=== PATIENT | female | born 1965 | race Caucasian/White ===

== ENCOUNTER → 2017-12-18 | Outpatient (CLI) | payer OTHER ==
[~2017-12-18] MED LIST: AZI250 PO; BENZ200C15 PO; DOX100 PO; FENO145T36 PO; FLUT15.87; HYDR12.561 PO; HYDR473S4 PO; ICOS1CAP PO; INSU100I30 SQ; INSU100V28 SQ; LOSA100T67 PO; LOSA50TA72 PO; METF-410 PO; NEED-653 SQ; NITR-105 PO; NO ROUTINE MEDS; OMEP-125 PO; PHEN120S18 PO; PRE20 PO; SITA100T PO
== END ==
LOC: LAB 07:51
PROVIDERS: ATTEND Internal Medicine
DX: E11.65 Type 2 diabetes mellitus with hyperglycemia (principal)
CPT/HCPCS: 36415; 83036

== ENCOUNTER → 2017-12-18 | Outpatient (REF) ==
[2017-12-18 08:54] LABS: LDL CHOLESTEROL 76 mg/dl
== END ==
DX: Z02.9 Encounter for administrative examinations, unspecified (principal)

== ENCOUNTER → 2018-05-25 | Outpatient (CLI) | payer OTHER ==
[~2018-05-25] MED LIST changes: +BLOO-1777 MC; -LOSA100T67 PO; +LOSA100T69 PO; -LOSA50TA72 PO; +LOSA50TA74 PO; -METF-410 PO; +METF-450 PO
[2018-05-25 09:54] LABS: LDL CHOLESTEROL 65 mg/dl
== END ==
LOC: LAB 07:49
PROVIDERS: ATTEND Internal Medicine
DX: E11.65 Type 2 diabetes mellitus with hyperglycemia (principal); E78.1 Pure hyperglyceridemia; I10 Essential (primary) hypertension
CPT/HCPCS: 36415; 82040; 82247; 82310; 82374; 82435; 82465; 82565; 82947; 83036; 83718; 84075; 84132; 84155; 84295; 84443; 84450; 84460; 84478; 84520

== ENCOUNTER → 2018-10-11 | Outpatient (CLI) | payer OTHER ==
[~2018-10-11] MED LIST changes: +HYDR-2966 PO; -LOSA100T69 PO; +LOSA100T75 PO; -LOSA50TA74 PO; +LOSA50TA80 PO
== END ==
LOC: LAB 08:10
PROVIDERS: ATTEND Internal Medicine
DX: E11.65 Type 2 diabetes mellitus with hyperglycemia (principal)
CPT/HCPCS: 83036

== ENCOUNTER → 2018-10-11 | Outpatient (REF) ==
[2018-10-11 09:37] LABS: LDL CHOLESTEROL 69 mg/dl
== END ==
DX: Z02.9 Encounter for administrative examinations, unspecified (principal)

== ENCOUNTER → 2019-03-18 | Outpatient (CLI) | payer OTHER ==
[~2019-03-18] MED LIST changes: +LOSA-54 PO; +NALT1TAB PO; -OMEP-125 PO; +OMEP-126 PO
== END ==
LOC: LAB 09:54
PROVIDERS: ATTEND Nurse Practitioner Family
DX: E11.65 Type 2 diabetes mellitus with hyperglycemia (principal)
CPT/HCPCS: 36415; 83036